=== PATIENT | male | born 1980 ===

== ENCOUNTER 2017-08-23 07:50 | Emergency (ER) | payer OTHER ==
[2017-08-23] MEDS ORDERED: SODIUM CHLORIDE 0.9% 1000ML 1,000 ML IV ONE ×4 (08:02→09:49)
[2017-08-23] MEDS ORDERED: THIAMINE 100 MG/ML 100 MG/ML SOL IV ONE (08:04)
[2017-08-23] MEDS ORDERED: LORAZEPAM 2 MG/ML 10ML MDV 2 MG/ML VIAL IV ONE (08:05)
[2017-08-23] MEDS ORDERED: THIAMINE 100 MG/ML 100 MG/ML SOL ONE (08:09)
[2017-08-23] MEDS ORDERED: LORAZEPAM 2 MG/ML SOL ONE ×2 (08:10→12:17)
[2017-08-23 08:22] LABS: CALCIUM 8.6 mg/dl (8.5-10.1); POTASSIUM 3.5 mMol/L (3.5-5.1)
[2017-08-23 08:29] LABS: HEMATOCRIT 55 % (39-53); MEAN CORPUSCULAR HGB CONC 33.6 gm/dl (32.0-36.0); MEAN CORPUSCULAR VOLUME 89 fL (80-100)
[2017-08-23] MEDS ORDERED: PANTOPRAZOLE SODIUM 40 MG/10 ML PDS IV ONE ×2 (08:35→09:22)
[2017-08-23 08:46] LABS: BASOPHILS % (MANUAL) 0 % (0-3); EOSINOPHILS % (MANUAL) 0 % (0-9); LYMPHOCYTES % (MANUAL) 1 % (10-50); NORMAL RBCS PRESENT
[2017-08-23] MEDS ORDERED: PANTOPRAZOLE SODIUM 40 MG/10 ML PDS ONE ×3 (09:15→10:56)
[2017-08-23] MEDS ORDERED: MAGNESIUM SULFATE 1 GM/2 ML SOL IV ONE (09:17)
[2017-08-23] MEDS ORDERED: MAGNESIUM SULFATE 5 GM/10 ML SOL ONE (09:26)
[2017-08-23] MEDS ORDERED: SODIUM CHLORIDE 0.9% 100 ML 80 ML with PANTOPRAZOLE SODIUM 40 MG VIAL 80 MG IV SCH (09:30)
[2017-08-23 09:42] LABS: ABG PH 7.41 (7.35-7.45)
[2017-08-23 10:53] LABS: APPEARANCE,URINE Clear; BILIRUBIN,URINE NEGATIVE (NEGATIVE); COLOR,URINE Yellow; GLUCOSE, URINE (UA) NEGATIVE (NEGATIVE); KETONES,URINE 3+ (NEGATIVE); LEUKOCYTE ESTERASE ,URINE NEGATIVE (NEGATIVE); NITRATE,URINE NEGATIVE (NEGATIVE); OCCULT BLOOD,URINE 2+ (NEG-TRACE); UROBILINOGEN,URINE 0.2 (0.2-1.0 EU)
[2017-08-23 11:07] LABS: RBC,URINE 0-3 (0-3AV/HPF); WBC,URINE 0-1 (0-5AV/HPF)
[2017-08-23 11:08] LABS: AMPHETAMINES NEGATIVE (NEGATIVE); METHADONE NEGATIVE (NEGATIVE); OPIATES(OP13) NEGATIVE (NEGATIVE); OXYCODONE(OXY) NEGATIVE (NEGATIVE); PROPOXYPHENE(PPX) NEGATIVE (NEGATIVE); TRICYCLIC ANTIDEPRESSANTS NEGATIVE (NEGATIVE)
[2017-08-23] MEDS ORDERED: CEFTRIAXONE 1 GM PDS 1 GM in SODIUM CHLORIDE 0.9% 50 ML 50 ML IV ONE (11:27)
[2017-08-23] MEDS ORDERED: VANCOMYCIN HCL 500 MG PDS 1,000 MG in SODIUM CHLORIDE 0.9% 250 ML 250 ML IV ONE (11:27)
[2017-08-23] MEDS ORDERED: CEFTRIAXONE 1 GM PDS ONE (11:30)
[2017-08-23] MEDS ORDERED: ONDANSETRON HCL 4 MG/2 ML SOL IV ONE (11:41)
[2017-08-23] MEDS ORDERED: ONDANSETRON HCL 4 MG/2 ML SOL ONE (11:49)
[2017-08-23] MEDS ORDERED: VANCOMYCIN HYDROCHLORIDE 500 MG PDS IV ONE (12:10)
[2017-08-23] MEDS ORDERED: LORAZEPAM 2 MG/ML SOL IV ONE (12:14)
[2017-08-23 12:35] VITALS: TEMP 98.2
[2017-08-23 13:47] LABS: BASOPHILS % (AUTO) 1 % (0-3); EOSINOPHILS % (AUTO) 0 % (0-9); HEMATOCRIT 42 % (39-53); MEAN CORPUSCULAR HGB CONC 34.3 gm/dl (32.0-36.0); MEAN CORPUSCULAR VOLUME 89 fL (80-100); MONOCYTES % (AUTO) 7.3 % (0-12); NEUTROPHILS % (AUTO) 88.8 % (37-80)
[2017-08-23 13:52] LABS: POTASSIUM 4.3 mMol/L (3.5-5.1)
[2017-08-23 13:53] LABS: CALCIUM 7.1 mg/dl (8.5-10.1)
[2017-08-23 14:03] VITALS: BP 119/70; PULSE 113; RESP 36; O2SAT 93
== END 2017-08-23 14:00 | disposition short-term general hospital (02) ==
LOC: ED 07:50
DX: K92.2 Gastrointestinal hemorrhage, unspecified (principal); K20.9 Esophagitis, unspecified; E87.2 Acidosis; F10.10 Alcohol abuse, uncomplicated; Y90.4 Blood alcohol level of 80-99 mg/100 ml
CPT/HCPCS: 36415; 36600; 71045; 71260; 74177; 80048; 80053; 80305; 80307; 81001; 82272; 82803; 83735; 85007; 85025; 85027; 85610; 87040; 93005; 96365; 96366; 96374; 96375; 99070; 99285; J0696; J2060; J2405; J3370; J3475; Q9967; J3411